=== PATIENT | male | born 1975 | race Caucasian/White ===

== ENCOUNTER 2021-04-12 08:58 | Emergency (ER) | payer SELFPAY ==
[2021-04-12] VITALS (28 sets, daily range): BP systolic 110–136; BP diastolic 33–93; PULSE 50–73; RESP 13–28; TEMP 36.2; O2SAT 96–100
--- NOTE | ~2021-04-12 | CT_ITS ---
EXAMINATION: CT abdomen pelvis w con DATE: 04/12/2021 11:25 INDICATION: Right lower quadrant pain TECHNIQUE: Computed tomography (CT) of the abdomen and pelvis was performed with 100 cc Omnipaque 350 intravenous contrast. The dose-length product was 207.93 mGy-cm. Automated exposure control and iter ative reconstruction technique were employed. COMPARISON: None. FINDINGS: Lung bases unremarkable. Heart size normal. No significant pleural or pericardial effusion. No significant vascular abnormality. No lymphadenopathy. Nonobstructive bowel gas pattern. The appen angela is not positively visualized. There is no pericecal inflammatory change to suggest appendicitis. The liver, spleen, pancreas, adrenal glands and kidneys are unremarkable. Gallbladder is present. No free air or free fluid. No abnormal pelvic masses or fluid collections. No acute osseous abnormality. IMPRESSION: 1. No acute abdominal abnormality. Reviewed, dictated and finalized at location A. ING MACHINE OPERATOR
--- NOTE | 2021-04-12 10:38 | ECG_ITS ---
Measurements Intervals [place] Rate: 51 P: 42 NM: 224 QRS: 115 QRSD: 102 T: 75 QT: 436 QTc: 402 Interpretive Statements SINUS BRADYCARDIA WITH FIRST DEGREE AV BLOCK ST ELEVATION IN ANTEROLAT/INF LEADS- PROBABLY EARLY REPOLARIZATION ABNORMALITY BASELINE ARTIFACT- II, III, AVR, AVL, AVF, V3-V6 ABNORMAL ECG Electronically Signed On 04-12-2021 11:36:47 [employer]STATE PL[employer] by Lyndon Krishna D.O.
[2021-04-12 11:02] LABS: Basophils Percent Auto 0.2 % (0.2-1.2); Hematocrit 46.1 % (42.0-52.0); Hemoglobin 15.9 g/dL (14.0-18.0); Immature Granulocyte Absolute 0.05 K/mm3 (0.00-0.031); Immature Granulocyte Percent A 0.3 % (0-0.5); Lymphocytes Absolute Auto 1.27 K/mm3 (0.9-3.2); Lymphocytes Percent Auto 7.6 % (18.3-44.2); Mean Corpuscular HGB Conc 34.5 g/dl (32-36); Mean Corpuscular Hemoglobin 31.3 pg (26-34); Mean Corpuscular Volume 90.7 fl (80-100); Mean Platelet Volume 10.1 fl (7.4-10.4); Monocytes Absolute Auto 0.9 K/mm3 (0.1-0.6); Monocytes Percent Auto 5.4 % (2.6-8.5); Neutrophils Absolute Auto 14.6 K/mm3 (1.3-6.7); Neutrophils Percent Auto 86.5 % (45.5-73.1); Platelet Count Result 279 k/mm3 (150-375); Red Blood Count 5.08 M/mm3 (4.6-6.20); Red Cell Distribution Width 13.9 % (11.5-14.5); White Blood Count 16.8 K/mm3 (4.5-10.0)
--- NOTE | 2021-04-12 11:09 | ED.ABDPAIN ---
HPI - Abdominal Pain General Chief Complaint: Abdominal Pain Stated Complaint: Abd Pain Time Seen by Provider: 04/12/21 11:00 Source: patient and RN notes reviewed Limitations: no limitations History of Present Illness HPI narrative: Patient presents with right lower quadrant pain that started at 3 AM at work. Radiating to right lower back. Associated with nausea. Patient denies any chest pain or shortness of breath. Patient also denies any fever, chills, vomiting, diarrhea, urinary symptoms. History of kidney stone, patient smokes, drinks and uses marijuana. Patient denies any chest pain or shortness of breath or upper back pain. Patient is not vaccinated for COVID-19. Related Data Allergies Allergy/AdvReac Type Severity Reaction Status Date / Time POISON PRISCILA Allergy Uncoded 02/10/11 12:06 Review of Systems Review of Systems: CONSTITUTIONAL: Denies fever, chills, or sweats. EYES: Denies visual changes, redness, or discharge. ENT: Denies rhinorrhea, congestion, sore throat, or otalgia. CARDIOVASCULAR: Denies chest pain, palpitations, or edema. RESPIRATORY: Denies cough or dyspnea. GASTROINTESTINAL: Denies abdominal pain, nausea, vomiting, or diarrhea. GENITOURINARY: Denies dysuria or hematuria. SKIN: Denies rash or itching. MUSCULOSKELETAL: Denies back pain, joint pain, or myalgia. NEUROLOGIC: Denies headache, numbness, or weakness. PSYCHIATRIC: Denies anxiety or depression. Exam Narrative: General appearance: Well-developed, well-nourished Skin: Normal color Head: Normocephalic, nontraumatic Eyes: Clear conjunctiva ENT: Oropharynx normal, ears normal, nose normal Neck: Supple, nontender Chest and respiratory: Airway patent, no respiratory distress, no accessory muscle use Heart: Regular rate/rhythm Abdomen: Soft, mild right lower quadrant tenderness, no guarding or rebound, quiet bowel sounds Vascular: Normal peripheral pulses, normal capillary refill. Musculoskeletal: Normal range of motion, nontender back Neurologic: Alert and oriented ?3, DIRECTOR OF [employer] SERVICES is normal as tested, no gross motor deficit Course Course Emergency Course: Stable Consultations Consultation #1: Dr. Garcia. EKGs were texted to Dr. Garcia who recommend that patient can go home, EKG looks okay and nothing to be worried about. Date: 04/12/21 Time: 14:11 Consultation #2: Dr. Scherer Recommend patient to go home to follow-up as outpatient. Date: 04/12/21 Time: 15:41 Vital Signs Vital signs: Vital Signs Temperature 36.2 C L 04/12/21 09:06 Pulse Rate 50 L 04/12/21 09:06 Respiratory Rate 18 04/12/21 09:06 Blood Pressure 134/79 04/12/21 09:06 Pulse Oximetry 97 04/12/21 09:06 Temperature 36.2 C L 04/12/21 09:06 Pulse Rate 70 04/12/21 15:02 Respiratory Rate 16 04/12/21 15:02 Blood Pressure 126/81 04/12/21 15:02 Pulse Oximetry 97 04/12/21 15:02 MDM - Abdominal Pain MDM Narrative Medical decision making narrative: Patient presents with right lower quadrant pain. Labs, CT abdomen pelvis with IV contrast, IV fluid ordered. Differential Diagnosis Differential diagnosis: Likely acute appendicitis, calculus of kidney, constipation and diverticulitis Lab Data Result diagrams: 04/12/21 10:48 04/12/21 10:48 Labs: Lab Results 04/12/21 04/12/21 04/12/21 Range/Units 10:48 10:48 10:48 WBC 16.8 H (4.5-10.0) K/mm3 RBC 5.08 (4.6-6.20) M/mm3 Hgb 15.9 (14.0-18.0) g/dL Hct 46.1 (42.0-52.0) % MCV 90.7 (80-100) fl MCH 31.3 (26-34) pg MCHC 34.5 (32-36) g/dl RDW 13.9 (11.5-14.5) % Plt Count 279 (150-375) k/mm3 MPV 10.1 (7.4-10.4) fl Immature Gran % (Auto) 0.3 (0-
[2021-04-12 11:11] LABS: Alanine Aminotransferase 22 U/L (4-50); Albumin Level 4.6 g/dL (3.5-5.1); Alkaline Phosphatase 74 U/L (38-126); Anion Gap 10 mmol/L (8-16); Aspartate Amino Transferase 28 U/L (17-59); Bilirubin,Total 0.7 mg/dL (0.2-1.3); Blood Urea Nitrogen 20 mg/dL (9-20); Calcium 9.8 mg/dL (8.4-10.2); Carbon Dioxide 28 mmol/L (22-30); Chloride 101 mmol/L (98-107); Estimated CRCL calculation 51 ml/min; Estimated Glomerular Filt Rate 51; Glucose 115 mg/dL (65-110); Lipase 215 U/L (23-300); Potassium 3.7 mmol/L (3.4-5.0); Sodium 139 mmol/L (137-145)
[2021-04-12 11:14] LABS: INR 0.9; Prothrombin Time 12.4 Seconds (11.1-14.7)
[2021-04-12 11:22] LABS: Troponin I < 0.012 ng/mL (0.000-0.034)
[2021-04-12 11:52] LABS: Erythrocyte Sedimentation Rate 1 mm/hr (0-20)
[2021-04-12 11:57] LABS: Add Urine Microscopic? YES; Appearance Urine Cloudy (Clear); Bilirubin Urine Negative (Negative); Blood Urine 3+ (Negative); Color Urine Yellow (Yellow); Glucose Urine UA Negative (Negative); Ketones Urine 1+ mg/dL (Negative); Leukocyte Esterase Ur Negative LEU/UL (Negative); Mucus Urine Moderate /lpf; Nitrate Urine Negative (Negative); Protein Urine 2+ mg/dL (Negative); RBC Urine >75 /hpf (0-2); Specific Grav Ur 1.028 (1.001-1.035); Squamous Epithelial Cell Urine Rare /hpf (Few); Urobilinogen Urine Negative mg/dL (<2.0)
--- NOTE | 2021-04-12 12:26 | ECG_ITS ---
Measurements Intervals [place] Rate: 46 P: -58 [place]: 179 QRS: 87 QRSD: 112 T: 74 QT: 471 QTc: 414 Interpretive Statements ECTOPIC ATRIAL BRADYCARDIA INTRAVENTRICULAR CONDUCTION DELAY ABNORMAL ECG Electronically Signed On 04-12-2021 14:07:49 MANAGER [employer] C[employer] by Lyndon Krishna D.O.
[2021-04-12] MEDS: MORPHINE SULFATE (*CRX) 4 MG/ML INJ IV PUSH (12:29)
[2021-04-12] MEDS: ONDANSETRON INJ 4 MG/2 ML VIAL 8 MG IV PUSH (12:29)
[2021-04-12] MEDS: SODIUM CHLORIDE 0.9% IV 1,000 ML 999 ML IV CONT (12:30)
[2021-04-12 12:53] LABS: CRP < 0.5 mg/dL (<1.0)
[2021-04-12] MEDS: HYDROmorphone HCL INJ (*CRX) 1 MG/ML SYR 0.5 MG IV PUSH (14:44)
[2021-04-12] MEDS: ONDANSETRON INJ 4 MG/2 ML VIAL IV PUSH (14:45)
[2021-04-12] MEDS: TAMSULOSIN HCL 0.4 MG CAPSULE PO (14:49)
== END 2021-04-12 16:00 | disposition home or self-care (01) ==
PROVIDERS: Emergency Provider Emergency Medicine
DX: N20.0 Calculus of kidney (principal); R00.1 Bradycardia, unspecified; Z87.442 Personal history of urinary calculi; Z72.0 Tobacco use
CPT/HCPCS: 36415; 74177; 80053; 81001; 83690; 84484; 85025; 85610; 85652; 86140; 87086; 87088; 93005; 96361; 96374; 96375; 96376; 99284; A9270; J1170; J2270; J2405; J7030; Q9967